=== PATIENT | male | born 1960 | race Caucasian/White ===

== ENCOUNTER 2021-01-13 18:12 | Emergency (ER) | payer MEDICAID, OTHER ==
[2021-01-13 18:29] VITALS: TEMP 98.6
--- NOTE | 2021-01-13 19:23 | ED ---
General Adult HPI - General Chief complaint: Urogenital Stated complaint: Male Time Seen by Provider: 01/13/21 18:25 Source: patient, RN notes reviewed, old records reviewed Mode of arrival: ambulatory Limitations: no limitations - History of Present Illness Initial comments: This a 60-year-old male who presents emergency department complaining of left- sided testicular pain. Patient states 2 years ago he has swelling in the testicle he went got an ultrasound and told there was some fluid on or around his testicle. Patient states he did not follow up after that. Patient states in the last couple of weeks he has noticed more swelling and more pain and then today he noticed the swelling to be much worse with some increase in pain as well so decided come to the emergency department. Patient denies any fever chills. Patient denies any dysuria hematuria urinary frequency. - Related Data Home Medications Medication Instructions Recorded Confirmed Acetaminophen [Tylenol] 500 mg PO Q4-6H PRN 12/30/15 12/30/15 Previous Rx's Medication Instructions Recorded Amoxic-Pot Clav 875-125Mg 1 tab PO Q12HR #14 tablet 01/21/16 [Augmentin 875-125] Multivitamin [Men's Multi-Vitamin] 1 each PO DAILY@1200 #30 tablet 01/21/16 Sulfamethox-Tmp 800-160Mg [Bactrim 1 tab PO Q12HR #14 tab 01/21/16 DS 800-160 mg] Allergies Allergy/AdvReac Type Severity Reaction Status Date / Time No Known Allergies Allergy Verified 01/13/21 18:25 Review of Systems ROS Statement: Those systems with pertinent positive or pertinent negative responses have been documented in the HPI. ROS Other: All systems not noted in ROS Statement are negative. Past Medical History Past Medical History: No Reported History, Hypertension Additional Past Medical History / Comment(s): "I HAD [id number] IN THE ", pancrease, vertigo History of Any Multi-Drug Resistant Organisms: None Reported Past Surgical History: Section, Hernia Repair Additional Past Surgical History / Comment(s): UMBILICAL HERNIA REPAIR Past Anesthesia/Blood Transfusion Reactions: No Reported Reaction Additional Past Anesthesia/Blood Transfusion Reaction / Comment(s): PT LIVES ALONE,WORKS AT [employer]. NO SERVICE IN HIS PAT. PT IS INDEPENDANT. Past Psychological History: No Psychological Hx Reported Smoking Status: Current every day smoker Past Alcohol Use History: None Reported Past Drug Use History: None Reported - Past Family History Mother Family Medical History: Cancer Additional Family Medical History / Comment(s): CANCER UNK TYPE Father History Unknown: Yes Additional Family Medical History / Comment(s): STATED HIS DAD IN HIS 70'S AND IS HEALTHY General Exam - General Exam Comments Initial Comments: GENERAL Patient is well-developed and well-nourished. Patient is in mild distress. EYES Patient's pupils are equal and round. Extraocular motion is intact GENITALIA Scrotum is not red there is some fullness above the left testicle and it is mildly tender. SKIN Unremarkable NEURO The patient is alert and oriented 3 PYSCH Patient has normal interpersonal interactions. MUSCULOSKELETAL All 4 times and full range of motion Limitations: no limitations Course Vital Signs 01/13/21 01/13/21 18:25 20:16 Temperature 98.6 F Pulse Rate 100 99 Respiratory 20 18 Rate Blood Pressure 110/71 125/77 O2 Sat by Pulse 98 95 Oximetry Medical Decision Making - Medical Decision Making ultrasound showed no testicular torsion or mass. Patient indicated that this enlargement had been there for about 2 years. Disposition Clinical Impression: Hydrocele Disposition: HOME SELF-CARE Is patient prescribed a controlled substance at d/c from ED?: No Referrals: Bello Richard MD [STAFF PHYSICIAN] - 1-2 days Time of Disposition: 20:57
[2021-01-13 20:17] VITALS: BP 125/77; PULSE 99; RESP 18
--- NOTE | 2021-01-13 20:54 | US ---
EXAMINATION TYPE: US scrotum with doppler. Grayscale and color Doppler Duplex imaging performed of aravind amezquita scrotum. DATE OF EXAM: 01/13/2021 COMPARISON: CT CLINICAL HISTORY: Swollen scrotum. Swelling. EXAM MEASUREMENTS: TESTICLES: Right Testicle: 5.2 x 3.1 x 2.9 cm Left Testicle: 5.0 x 3.8 x 2.8 cm -Hyperechoic area seen within the right testicle: 0.1 x 0.09 x 0.09 cm. EPIDIDYMIS HEAD: Right Epididymis: 0.7 x 0.7 x 1.1 cm Left Epididymis: 1.1 x 0.8 x 1.5 cm Doppler performed to assess for testicular vascularity; bilateral color flow and waveforms are seen. Presence of hydroceles: Right: 1.7 x 2.3 x 1.2 cm. Left: 1.4 x 2.8 x 1.0 cm. Presence of varicoceles: Lateral vessels appear to measure up to 2.1 mm on the right and 1.9 mm on th e left. Unable to show flow in the vessels on the right with color Doppler, but pulsed wave Doppler shows venous waveform. ?Possible internal echoes, possible non-occlusive thrombus? IMPRESSION: No testicular torsion or mass. Bilateral mild hydroceles. The left epididymis larger than the right. No significant hyperemia. Clinical significance is not clear. No definite evidence for a varicocele.
== END 2021-01-13 21:23 | disposition home or self-care (01) ==
LOC: EC 18:12
DX: N43.3 Hydrocele, unspecified (principal); N50.812 Left testicular pain; F17.200 Nicotine dependence, unspecified, uncomplicated; Z60.2 Problems related to living alone
CPT/HCPCS: 76870; 93975; 99284